=== PATIENT | male | born 2000 | race Caucasian/White ===

== ENCOUNTER 2022-10-01 | Emergency (ER) | payer MEDICAID, SELFPAY ==
[2022-10-01 00:05] VITALS: BP 156/94; PULSE 86; RESP 16; TEMP 36.9; O2SAT 96; BMI 17.2
--- NOTE | 2022-10-01 01:43 | HMH.EDDENT ---
Discharge Plan Disposition Patient Disposition: Home, Self-Care Prescriptions Prescriptions: New clindamycin HCl 300 mg capsule 300 mg PO TID Qty: 30 0RF fluconazole [Diflucan] 100 mg tablet 100 mg PO DAILY Qty: 7 0RF Referrals Follow up/Referrals: Provider,Referral, [Primary Care Provider] - See instructions Clinical Impressions Clinical Impression: Gingivitis, Stomatitis Instructions Patient Instructions: DI for Gingivitis Discharge ED Provider: [facility] HPI General Chief complaint: Dental/Oral Stated complaint: Sores in mouth, rash on tongue, painful to eat Time Seen by Provider: 10/01/22 01:43 Mode of Arrival: Ambulatory Source of Information: Patient, Significant Other and Medical Record Limitations: No Limitations Description of Symptoms (Recalled from ER Triage Doc. by RN): the pt states that he started having canker sores about 5 days ago now he has sores on the sides of his mouth and going in to his mouth. the pt has a red splotchy rash on his tongue and states that it hurts him to talk drink or eat the pt reorts the only new thing he has had oraly is a new vape. the pt reports to have no hx of coldsores or chickenpox exc. History of Present Illness HPI Narrative: pt with progressive mouth lesions over the last few days with gingival infection - no abscess Onset (ago): day(s) Duration: intermittent Severity: moderate Context: poor dental care Associated symptoms: gum swelling and tongue swelling Related Data Previous Rx's Medication Instructions Recorded clindamycin HCl 300 mg capsule 300 mg PO TID #30 caps 10/01/22 fluconazole 100 mg tablet 100 mg PO DAILY #7 tabs 10/01/22 (Diflucan) Allergies Allergy/AdvReac Type Severity Reaction Status Date / Time No Known Allergies Allergy Verified 10/01/22 00:46 PFSH PFSH Social History Smoking Status: Current every day smoker alcohol intake: never current occupational status: unemployed Travel in the last 8 weeks: None ROS Obtained: Yes All systems reviewed & no additional complaints except as documented Physical Exam General General appearance: alert Head Head exam: normocephalic Eye Eye exam: Present PERRL and EOMI ENT ENT exam: Present mucous membranes moist and other (no abscess but has marked gingival dis with irritated mm ) Neck Neck exam: Present full ROM Respiratory Respiratory exam: Absent respiratory distress Cardiovascular Cardiovascular exam: Present regular rate Abdominal Exam Abdominal exam: Present soft Extremities Exam Extremities exam: Present full ROM Neurological Exam Neurological exam: Present alert and CN II-XII intact Skin Skin exam: Absent rash Medical Decision Making Medical Records Medical records reviewed: Yes I reviewed the patient's medical records. Bong Inquiry Pt receiving controlled substance: No Vital Signs: 10/01/22 00:05 Temperature 98.4 F Temperature Source Oral Pulse Rate [Left] 86 Respiratory Rate 16 Blood Pressure [Right Arm] 156/94 H Blood Pressure Mean [Right Arm] 114 02 Sat by Pulse Oximetry 96 Oxygen Delivery Method Room Air Lab Data Lab results reviewed: Yes I reviewed the patient's lab results. Medical Decision Narrative: prob mouth lesions related to dental infection Critical Care Time Critical Care Time Critical Care Time: No Attestation: On 10/01/22, the high probability of a clinically significant, sudden or life threatening deterioration of the following system(s) required my full and direct attention, intervention and personal management. The time I documented below is in addition to time spent performing reported procedures but includes the following listed in this critical care notation.
[2022-10-01 01:59] VITALS: BP 112/77; RESP 16; TEMP 36.9; O2SAT 96
[2022-10-01 02:00] VITALS: BP 112/77; PULSE 81; RESP 16; TEMP 36.9; O2SAT 98
== END 2022-10-01 02:02 | disposition home or self-care (01) ==
PROVIDERS: Emergency Provider Emergency Medicine
DX: J02.9 Acute pharyngitis, unspecified (principal); K05.10 Chronic gingivitis, plaque induced; K13.79 Other lesions of oral mucosa; K14.9 Disease of tongue, unspecified; F17.210 Nicotine dependence, cigarettes, uncomplicated
CPT/HCPCS: 99213; G0463

== ENCOUNTER 2022-11-30 14:38 | Emergency (ER) | payer MEDICAID, SELFPAY ==
[2022-11-30 15:30] VITALS: BP 131/86; PULSE 84; RESP 18; TEMP 36.9; O2SAT 100; BMI 15.5
[2022-11-30 15:39] VITALS: BP 131/86; PULSE 84; RESP 18; TEMP 36.9; O2SAT 100
--- NOTE | 2022-11-30 15:41 | EXP.UTC ---
Discharge Plan Disposition Patient Disposition: Home, Self-Care Condition: Good Prescriptions Prescriptions: New clindamycin HCl 300 mg capsule 300 mg PO TID 10 Days Qty: 30 0RF fluconazole 100 mg tablet 100 mg PO DAILY 5 Days Qty: 5 0RF No Action clindamycin HCl 300 mg capsule 300 mg PO TID Qty: 30 0RF fluconazole [Diflucan] 100 mg tablet 100 mg PO DAILY Qty: 7 0RF Referrals Follow up/Referrals: Provider,Referral, MD [Primary Care Provider] - See instructions Activity Restrictions/Add. Instructions Additional Instructions/Restrictions: follow up with a dentist korin use mouth wash daily follow up with pcp Clinical Impressions Clinical Impression: Gingivitis, Stomatitis Instructions Patient Instructions: DI for Gingivitis Discharge ED Provider: Davey Wilson [facility] General Stated complaint: Blisters in mouth Mode of Arrival: Ambulatory Source of Information: Patient Limitations: No Limitations Time Seen by Provider: 11/30/22 15:41 Description of Symptoms (Recalled from Triage Doc. by RN): PATIENT C/O BLISTERS IN MOUTH X 2 DAYS HEENT Symptoms (Recalled from RN notes): Yes Resp Symptoms (Recalled from RN notes): No Skin Symptoms (Recalled from RN notes): No MS Symptoms (Recalled from RN notes): No Functional Status (Recalled from RN notes): WNL History of Present Illness Provider Complaint: 21 yr old male presents for sores on the sides of his mouth, roof, tongue and lips. Pt states he has a red splotchy rash on his tongue and states that it hurts him to talk drink or eat. Related Data Previous Rx's Medication Instructions Recorded clindamycin HCl 300 mg capsule 300 mg PO TID #30 caps 10/01/22 fluconazole 100 mg tablet 100 mg PO DAILY #7 tabs 10/01/22 (Diflucan) clindamycin HCl 300 mg capsule 300 mg PO TID 10 days #30 caps 11/30/22 fluconazole 100 mg tablet 100 mg PO DAILY 5 days #5 tabs 11/30/22 Allergies Allergy/AdvReac Type Severity Reaction Status Date / Time No Known Allergies Allergy Verified 10/01/22 00:46 Worker's Comp Is this a Worker's Comp case?: No [facility] Disclaimer: The information contained in this section may have been updated after the patient was seen, as this information can be updated by other users. Medical History , [employer]) No significant past medical history Social History , [employer]) Smoking Status: Current every day smoker alcohol intake: never current occupational status: unemployed Travel in the last 8 weeks: None ROS Obtained: Yes All systems reviewed & no additional complaints except as documented Constitutional Constitutional: Reports system reviewed and no additional complaints, except as documented and Reports as per HPI Eyes Eyes: Reports system reviewed and no additional complaints, except as documented ENT Ears, Nose, Mouth, and Throat: Reports system reviewed and no additional complaints, except as documented, Reports as per HPI and Reports other Cardiovascular Cardiovascular: Reports system reviewed and no additional complaints, except as documented Respiratory Respiratory: Reports system reviewed and no additional complaints, except as documented Gastrointestinal Gastrointestingal: Reports system reviewed and no additional complaints, except as documented Musculoskeletal Musculoskeletal: Reports system reviewed and no additional complaints, except as documented Integumentary/Breasts Skin/Breast: Reports system reviewed and no additional complaints, except as documented Neurologic Neurologic: Reports system reviewed and no additional complaints, except as documented Endocrine Endocrine: Reports system reviewed and no additional complaints, except as documented Hematologic/Lymphatic Henatologic/Lymphatic: Reports system reviewed and no additional complaints, except as documented Allergic/Immunologic Allerg
== END 2022-11-30 16:10 | disposition home or self-care (01) ==
PROVIDERS: Emergency Provider Nurse Practitioner Family
DX: K05.10 Chronic gingivitis, plaque induced (principal); K12.1 Other forms of stomatitis
CPT/HCPCS: 99212; 99213; G0463